=== PATIENT | male | born 1980 | race Caucasian/White ===

== ENCOUNTER 2016-12-14 07:26 | Day surgery (SDC) | payer MEDICARE, MEDICAID ==
[~2016-12-14 07:26] MED LIST: AUGMENTIN 875-1 EAC2 PO; AUGMENTIN 875-11 TAB PO; BACTRIM DS TAB1 EACH PO; CIPRO500 M2 PO; CIPRO500 MG PO; CLOTRIMAZOLE10 M1 PO; FUROSEMIDE40 M2 PO; GARAMYCIN5 ML OP; GLIPIZIDE10 M2 PO; GLUCOPHAGE1000 MG PO; HYDROCHLOROTHIA25 MG PO; K-TAB ER10 MEQ PO; LASIX20 MG PO; LASIX40 MG PO; LISINOPRIL10 MG PO; LISINOPRIL20 M1 PO; LISINOPRIL40 MG PO; LORTAB 5-500 T1 EAC1 PO; METFORMIN HCL500 M2 PO; METFORMIN HCL500 MG PO; MICRO-K10 MEQ PO; MINOCIN PO; MIRALAX12 EA PO; MULTI VITAMIN1 EAC2 PO; NORCO 5-325 TA1 EACH PO; PRAVACHOL20 MG PO; SIMVASTATIN20 M1 PO; SULFAMYLON60 GM TOP; TYLENOL WITH C1 EACH PO; TYLENOL325 M2 PO; ZESTRIL20 M2 PO; ZITHROMAX250 MG PO; ZOCOR20 MG PO; ZOCOR40 MG PO
[2016-12-14 08:08] LABS: BASO % 0.4 % (0-2); EOS % 2.1 % (0-7); EOSINOPHIL ABSOLUTE COUNT 0.2 tho/cmm (0.0-0.7); HCT-HEMATOCRIT 49.7 % (36.0-53.5); HGB-HEMOGLOBIN 16.9 gm/dl (13.5-17.0); IMMATURE GRANULOCYTES ABSOLUTE 0.04 tho/cmm (0-0.03); IMMATURE GRANULOCYTES PERCENT 0.4 % (0-0.3); LYMPH % 27.9 % (20-45); LYMPH ABSOLUTE COUNT 2.5 tho/cmm (0.8-4.5); MCH (MEAN CORPUSCULAR HGB) 29.1 pg (28.0-32.0); MCV (MEAN CELL VOLUME) 85.5 fl (82.0-96.0); MEAN PLATELET VOLUME 10.4 cmc (9.4-12.4); MONO % 6.5 % (0-12); MONOCYTE ABSOLUTE COUNT 0.6 tho/cmm (0.0-1.2); NEUTROPHIL ABSOLUTE COUNT 5.7 tho/cmm (1.6-8.0); NEUTROPHIL-AUTOMATED 5.7 tho/cmm (1.6-8.0); NEUTROPHILS % 62.7 % (40-80); PLATELET COUNT 248 tho/cmm (150-450); RED BLOOD COUNT 5.81 mil/cmm (4.40-5.70); RED CELL DISTRIBUTION WIDTH 13.5 % (12.4-16.4); WHITE BLOOD COUNT 9.1 tho/cmm (4.0-10.0)
[2016-12-14 08:16] LABS: ANION GAP 12 mmol/L (0-20); BLOOD UREA NITROGEN 7 mg/dl (6-24); CALCIUM 8.4 mg/dl (8.5-10.5); CARBON DIOXIDE-VENOUS 28 mmol/L (22-32); CHLORIDE 102 mmol/l (96-110); CREATININE 1.01 mg/dl (0.60-1.30); GLUCOSE 216 mg/dL (70-110); POTASSIUM 3.8 mmol/L (3.7-5.1); SODIUM 138 mmol/L (135-145); eGFR VALUE FOR BLACK >90 mL/Min
== END 2016-12-14 10:00 ==
LOC: SHSB 07:26
PROVIDERS: Anesthesiology
PROC: 0DBG8ZX Excision of Left Large Intestine, Via Natural or Artificial Opening Endoscopic, Diagnostic (ICD-10-PCS; principal; 2016-12-14)
PROC: 0DBF8ZX Excision of Right Large Intestine, Via Natural or Artificial Opening Endoscopic, Diagnostic (ICD-10-PCS; 2016-12-14)
PROC: 0DBP8ZX Excision of Rectum, Via Natural or Artificial Opening Endoscopic, Diagnostic (ICD-10-PCS; 2016-12-14)
DX: K62.1 Rectal polyp (principal); K64.8 Other hemorrhoids; R19.4 Change in bowel habit; Z88.1 Allergy status to other antibiotic agents; Z79.899 Other long term (current) drug therapy